=== PATIENT | male | born 1950 | race Two or more races ===

== ENCOUNTER 2022-01-31 23:02 | Inpatient (IN) | payer MEDICARE, OTHER ==
[~2022-01-31] VITALS: Ht 175.3 cm; Wt 95.9 kg
[2022-01-31] MEDS ORDERED: methylPREDNISolone SOD SUCC 125 MG/2ML VIAL ONE (23:30)
[2022-01-31] MEDS ORDERED: methylPREDNISolone SOD SUCC 125 MG/2ML VIAL IV ONE (23:30)
[2022-01-31] MEDS ORDERED: ALBUTEROL FS 2.5 MG/3 ML VIAL.NEB NEB ONE (23:30)
[2022-01-31] MEDS ORDERED: IPRATROPIUM NEB FS 0.5 MG/2.5 ML AMPUL.NEB NEB ONE (23:30)
[2022-01-31] MEDS ORDERED: ALBUTEROL FS 2.5 MG/3 ML VIAL.NEB ONE (23:35)
[2022-01-31] MEDS ORDERED: IPRATROPIUM NEB FS 0.5 MG/2.5 ML AMPUL.NEB ONE (23:35)
--- NOTE | 2022-01-31 23:41 | NUR ---
RT AT BEDSIDE FOR BREATHING TX
--- NOTE | 2022-01-31 23:41 | NUR ---
BLOOD COLLECTED AND SENT TO LAB
--- NOTE | 2022-02-01 | NUR ---
XR AT BEDSIDE
--- NOTE | 2022-02-01 00:01 | NUR ---
JOAO DONE AND SENT TO LAB
--- NOTE | 2022-02-01 00:01 | NUR ---
FLU SWAB DONE AND SENT TO LAB
[2022-02-01 00:15] LABS: BASOPHILS % (AUTO) 0.1 % (0.0-2.0); EOSINOPHILS % (AUTO) 2.4 % (0.0-6.0); HEMATOCRIT 48 % (39-51); HEMOGLOBIN 16.2 g/dL (13.5-17.5); LYMPHOCYTES % (AUTO) 12.1 % (20.0-44.0); MEAN CORPUSCULAR HGB CONC 34 g/dl (31.0-36.0); MEAN CORPUSCULAR VOLUME 97 fL (80-96); MONOCYTES % (AUTO) 8.5 % (2.0-12.0); NEUTROPHILS % (AUTO) 76.9 % (43.0-81.0); PLATELET COUNT (AUTO) 237 K/uL (150-450); RED BLOOD CELL COUNT(AUTO) 4.99 MIL/uL (4.5-6.0); WHITE BLOOD COUNT (AUTO) 9.1 K/uL (4.3-11.0)
[2022-02-01 00:16] LABS: LYMPHOCYTES # (AUTO) 1.1 K/uL (0.8-4.8); MONOCYTES # (AUTO) 0.8 K/uL (0.1-1.30)
[2022-02-01 00:28] LABS: CALCIUM, SERUM 9.4 mg/dL (8.5-10.1); CREATININE 1.4 mg/dL (0.6-1.3); POTASSIUM 4.6 mmol/L (3.5-5.1)
[2022-02-01] MEDS ORDERED: LEVOFLOXACIN 750 MG /D5W 150ML PIGGYBACK IV ONE (01:00)
[2022-02-01 01:30] LABS: BILIRUBIN,DIRECT 0.1 mg/dL (0.0-0.2); BILIRUBIN,TOTAL 0.5 mg/dL (0.2-1.0); TOTAL PROTEIN, SERUM 7.7 g/dL (6.4-8.2)
[2022-02-01] MEDS ORDERED: ALBUTEROL FS 2.5 MG/3 ML VIAL.NEB NEB ONE (03:00)
[2022-02-01] MEDS ORDERED: MAG HYDROX/AL HYDROX/SIMETH 30 ML UDC PO PRN (03:00)
[2022-02-01] MEDS ORDERED: Z GUARD REMEDY 4 OZ OINT TP PRN (03:00)
[2022-02-01] MEDS ORDERED: MAGNESIUM HYDROXIDE 30 ML UDC PO PRN (03:00)
[2022-02-01] MEDS ORDERED: ONDANSETRON HCL/PF 4 MG/2 ML VIAL IVP PRN (03:00)
[2022-02-01] MEDS ORDERED: IPRATROPIUM NEB FS 0.5 MG/2.5 ML AMPUL.NEB NEB ONE (03:00)
[2022-02-01] MEDS ORDERED: ZOLPIDEM TARTRATE 5 MG TABLET PO PRN (03:00)
[2022-02-01] MEDS ORDERED: ACETAMINOPHEN 325 MG TABLET PO PRN (03:00)
[2022-02-01] MEDS ORDERED: IV NS 0.9% 1,000 ML IV PRN (03:00)
[2022-02-01] MEDS ORDERED: ALBUTEROL FS 2.5 MG/3 ML VIAL.NEB ONE (03:10)
[2022-02-01] MEDS ORDERED: LORAZEPAM 1 MG TABLET ONE (04:45)
[2022-02-01] MEDS ORDERED: LORAZEPAM 1 MG TABLET PO PRN (05:00)
[2022-02-01] MEDS ORDERED: ATOR20TA PO (05:08)
[2022-02-01] MEDS ORDERED: ASPI-1169 PO (05:08)
[2022-02-01] MEDS ORDERED: LORA-259 PO (05:08)
[2022-02-01] MEDS ORDERED: METF-442 PO (05:08)
[2022-02-01] MEDS: methylPREDNISolone SOD SUCC 40 MG/ML VIAL IV SCH ×3 (06:17→21:17)
--- NOTE | 2022-02-01 06:30 | NUR ---
PATIENT RESTING COMFORTABLY AT THIS TIME.
--- NOTE | 2022-02-01 06:51 | NUR ---
BLOOD TRANSFUSION COMPLETED.
--- NOTE | 2022-02-01 07:15 | NUR ---
RECEVED PT FROM [facility] PT AWAKE AND ALERT NO SOB OR DISTRESS FIO2 3LNC
--- NOTE | 2022-02-01 07:50 | NUR ---
ROOM GIVEN [id number]
--- NOTE | 2022-02-01 08:34 | NUR ---
REPORT GIVEN TO LUCIANA WOODSON FOR GILLIAN
--- NOTE | 2022-02-01 09:20 | NUR ---
ADMISSION RN NOTES ADMITTED A 71 Y/O MALE TO THE UNIT AT 0910 VIA GURNEY ACCOMPANIED BY Krzysztof STAFF WITH DX OF COPD EXACERBATION. PATIENT IS ALERT AND ORIENTED X4, ABLE TO MAKE NEEDS KNOWN. PT ORIENTED TO STAFF AND UNIT. V/S TAKEN AND RECORDED. PT ON O2 AT 2L/MIN VIA NASAL CANNULA, TOLERATING WELL WITH SPO2 AT 95%. BREATHING UNLABORED AND NO SOB NOTED AT THIS TIME. PT IS NOT IN ANY SIGN OF RESPIRATORY DISTRESS. ABDOMEN FIRM AND NON-TENDER. BOWEL SOUNDS PRESENT IN ALL FOUR QUADRANTS. SKIN IS INTACT, DRY, AND WARM. NO SKIN ISSUES NOTED. IV ACCESS IN RFA G#20 INTACT AND PATENT. SAFETY MEASURES INITIATED: BED IN LOWEST AND LOCKED POSITION, SIDE RAILS UP X2, BED ALARM ON, AND CALL LIGHT WITHIN REACH. WILL CONTINUE TO MONITOR PT. Addendum: 02/01/22 at 1855 by LUCIANA MACIAS RN ADDENDUM: PT WAS PLACED ON TELE SUB ARC OPERATOR WITH CURRENT READING OF SINUS RHYTHM, HR 95. NO C/O CARDIAC DISTRESS VOICED OUT AT THIS TIME.
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
[2022-02-01 09:45] VITALS: BP 126/73
[2022-02-01] MEDS: PANTOPRAZOLE 40 MG VIAL IV SCH (10:08)
[2022-02-01] MEDS: HEPARIN SODIUM, PORCINE 5000 UNITS/1 ML VIAL SQ SCH ×2 (10:09→21:17)
[2022-02-01 12:00] VITALS: BP 122/62
[2022-02-01] MEDS: LORAZEPAM 1 MG TABLET PO PRN (13:56)
--- NOTE | 2022-02-01 13:58 | NUR ---
RN NOTE PT C/O FEELING ANXIOUS AND REQUESTED FOR ATIVAN. ATIVAN 1MG 1 TAB PO GIVEN ORDERED PRN Q8HRS FOR ANXIETY. WILL MONITOR AND REASSESS PT.
[2022-02-01 16:00] VITALS: BP 127/71
--- NOTE | 2022-02-01 18:51 | NUR ---
RN NOTE PT REQUESTED FOR LOZENGES FOR ITCHINESS OF HIS THROAT AND IF HE CAN CONTINUE HIS HOME MEDICATION METFORMIN 1000 MG BID PO. CALLED EDWIN BARRERA NP WITH ORDERS OF CEPACOL LOZENGE 1 JENNA Q4HRS PRN AND CAN CONTINUE HIS HOME MEDICATION METFORMIN 1000MG PO BID PO. ORDERS CARRIED OUT.
--- NOTE | 2022-02-01 18:56 | NUR ---
ATOMIC PHYSICS PROFESSOR CLOSING NOTE PT ASLEEP IN BED, EASILY AROUSED. PATIENT IS ALERT AND ORIENTED X4, ABLE TO MAKE NEEDS KNOWN. PT ON O2 AT 2L/MIN VIA NASAL CANNULA, TOLERATING WELL WITH SPO2 AT 94%. BREATHING UNLABORED AND NO SOB NOTED AT THIS TIME. PT IS NOT IN ANY SIGN OF RESPIRATORY DISTRESS. PT ON TELE STACK YIELD ENGINEER WITH CURRENT READING OF SINUS RHYTHM, HR 90. NO C/O CARDIAC DISTRESS VOICED OUT AT THIS TIME.IV ACCESS IN LFA G#22 INTACT AND PATENT. ALL NEEDS ATTENDED. KEPT CLEAN AND COMFORTABLE AT ALL TIMES. SAFETY MEASURES IN PLACE: BED IN LOWEST AND LOCKED POSITION, SIDE RAILS UP X2, BED ALARM ON, KEPT HOB ELEVATED AND CALL LIGHT WITHIN REACH. WILL ENDORSE TO HOME THERAPY CLINICIAN NURSE FOR [facility].
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
[2022-02-01 20:00] VITALS: BP 114/64
[2022-02-01] MEDS ORDERED: MENTHOL/CETYLPYRD (CEPACOL) 1 LOZ LOZENGE PO PRN (20:00)
[2022-02-01] MEDS ORDERED: ASPIRIN 81 MG TAB.CHEW PO SCH (22:00)
[2022-02-01] MEDS ORDERED: ATORVASTATIN 10 MG TABLET PO SCH (22:00)
[2022-02-01] MEDS: ALBUTEROL FS 2.5 MG/3 ML VIAL.NEB NEB SCH (23:34)
[2022-02-01] MEDS: IPRATROPIUM NEB FS 0.5 MG/2.5 ML AMPUL.NEB NEB SCH (23:35)
[2022-02-02] VITALS: BP 127/73
[2022-02-02] MEDS: LORAZEPAM 1 MG TABLET PO PRN (01:14)
[2022-02-02] MEDS ORDERED: LEVOFLOXACIN 750 MG /D5W 150ML 750 MG in PREMIX 1 EA IV SCH (02:00)
[2022-02-02] MEDS: IPRATROPIUM NEB FS 0.5 MG/2.5 ML AMPUL.NEB NEB SCH ×3 (03:30→12:37)
[2022-02-02] MEDS: ALBUTEROL FS 2.5 MG/3 ML VIAL.NEB NEB SCH ×3 (03:30→12:37)
[2022-02-02 04:00] VITALS: BP 109/67
[2022-02-02] MEDS: methylPREDNISolone SOD SUCC 40 MG/ML VIAL IV SCH ×2 (05:05→14:00)
[2022-02-02 06:05] LABS: HEMATOCRIT 41 % (39-51); HEMOGLOBIN 13.6 g/dL (13.5-17.5); LYMPHOCYTES # (AUTO) 0.5 K/uL (0.8-4.8); LYMPHOCYTES % (AUTO) 3.7 % (20.0-44.0); MEAN CORPUSCULAR HGB CONC 33 g/dl (31.0-36.0); MEAN CORPUSCULAR VOLUME 97 fL (80-96); MONOCYTES # (AUTO) 0.5 K/uL (0.1-1.30); MONOCYTES % (AUTO) 3.6 % (2.0-12.0); NEUTROPHILS # (AUTO) 13.1 K/uL (1.8-8.9); NEUTROPHILS % (AUTO) 92.7 % (43.0-81.0); PLATELET COUNT (AUTO) 228 K/uL (150-450); RED BLOOD CELL COUNT(AUTO) 4.19 MIL/uL (4.5-6.0); WHITE BLOOD COUNT (AUTO) 14.1 K/uL (4.3-11.0)
[2022-02-02 06:15] LABS: BILIRUBIN,URINE NEGATIVE (NEGATIVE); COLOR,URINE YELLOW (YELLOW); LEUKOCYTE ESTERASE ,URINE NEGATIVE (NEGATIVE); NITRITE, URINE NEGATIVE (NEGATIVE); PROTEIN,URINE NEGATIVE (NEGATIVE); UGLUCOSE 2+ mg/dL (NEGATIVE); UROBILINOGEN,URINE 0.2 EU/dL (0.2)
[2022-02-02 06:16] LABS: BACTERIA,URINE Rare /HPF (None Seen); RBC,URINE 0-2 /HPF (0-2); SQUAMOUS EPITHELIAL CELL,UR Few /HPF (None Seen); URINE AMORPHOUS PHOSPHATES Moderate /HPF (None Seen); WBC,URINE 0-2 /HPF (0-3)
[2022-02-02 06:38] LABS: CALCIUM, SERUM 8.3 mg/dL (8.5-10.1); MAGNESIUM 1.9 mg/dL (1.8-2.4); PHOSPHORUS 2.8 mg/dL (2.5-4.9); POTASSIUM 4.6 mmol/L (3.5-5.1)
--- NOTE | 2022-02-02 07:15 | NUR ---
TRANSIT POLICE OFFICER CLOSING NOTE PT IN BED, RESTING AT THIS TIME. A/O X4, ABLE TO MAKE NEEDS KNOWN. STABLE ON O2 AT 2L/MIN VIA NASAL CANNULA. BREATHING UNLABORED AND NO SOB NOTED AT THIS TIME. NO NOTED SIGNS OF RESPIRATORY DISTRESS AT THIS TIME. PT ON TELE CAR CHECKER WITH CURRENT READING OF SINUS RHYTHM, HR 84. NO C/O CARDIAC DISTRESS VOICED OUT AT THIS TIME. IV ACCESS IN LFA G#22 INTACT AND PATENT, RUNNING NS @ 75 ML/HR. PT C/O OF SOB WHEN AWOKEN AROUND 0500. SPO2 MEASURED AT 95%. PT PUT ON SEMI-FOWLERS AND O2 TITRATED TO 2 LPM. ALL CARE PROVIDED AND ADMINISTERED MEDICATIONS TOLERATED WELL. SAFETY MEASURES MAINTAINED: BED IN LOWEST AND LOCKED POSITION, SIDE RAILS UP X3, BED ALARM ON, KEPT HOB ELEVATED AND CALL LIGHT WITHIN REACH. WILL ENDORSE [facility]ILLIAN TO PATIENT CONSUMER MARKETER NURSE.
[2022-02-02 08:00] VITALS: BP 119/67
[2022-02-02] MEDS ORDERED: METFORMIN 500 MG TABLET PO SCH (09:00)
[2022-02-02] MEDS: PANTOPRAZOLE 40 MG VIAL IV SCH (09:48)
[2022-02-02] MEDS: HEPARIN SODIUM, PORCINE 5000 UNITS/1 ML VIAL SQ SCH (09:54)
[2022-02-02] MEDS ORDERED: LEVO500T90 PO (10:48)
[2022-02-02] MEDS ORDERED: METH4TAB17 PO (10:48)
[2022-02-02] MEDS ORDERED: ALBU8.5H8 INH (10:48)
[2022-02-02] MEDS ORDERED: TIOT18CA3 INH (10:48)
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
== END 2022-02-02 14:45 | disposition home or self-care (01) | DRG 190 ==
LOC: ER 23:03 → TRANSITION 02-01 04:14 → TELE 02-01 08:54
PROVIDERS: ADMIT Nurse Practitioner Acute Care; ATTEND Nurse Practitioner Acute Care
DX: J44.1 Chronic obstructive pulmonary disease with (acute) exacerbation (principal); N17.0 Acute kidney failure with tubular necrosis; Z20.822 Contact with and (suspected) exposure to COVID-19; I12.9 Hypertensive chronic kidney disease with stage 1 through stage 4 chronic kidney disease, or unspecified chronic kidney disease; N18.9 Chronic kidney disease, unspecified; Z99.81 Dependence on supplemental oxygen; E78.5 Hyperlipidemia, unspecified; Z86.16 Personal history of COVID-19; E11.22 Type 2 diabetes mellitus with diabetic chronic kidney disease; F41.9 Anxiety disorder, unspecified; Z88.0 Allergy status to penicillin; Z79.84 Long term (current) use of oral hypoglycemic drugs; Z87.891 Personal history of nicotine dependence; E66.9 Obesity, unspecified; Z68.31 Body mass index [BMI] 31.0-31.9, adult; G47.33 Obstructive sleep apnea (adult) (pediatric); J40 Bronchitis, not specified as acute or chronic
CPT/HCPCS: 36415; 70220-TC; 71045-TC; 80048-TC; 80076-TC; 81001; 83735-TC; 83880; 84100-TC; 84484-TC; 85025-TC; 87081-TC; 94799-TC; A4216; C9113; C9803; G0378; J1644; J1956; J2405; J2920; J2930; J7030